=== PATIENT | female | born 2000 | race Two or more races ===

== ENCOUNTER 2023-09-16 07:09 | Inpatient (IN) | payer MEDICAID ==
[~2023-09-16 07:09] MED LIST: Bupivacaine 0.25% 10 ML SDV ONE
[2023-09-16] MEDS ORDERED: Nalbuphine 10 MG/ML Syringe IVPUSH PRN (07:40)
[2023-09-16] MEDS ORDERED: Sodium Chloride 0.9% 10 ML Syringe FLUSH PRN (07:40)
[2023-09-16] MEDS ORDERED: Ondansetron 4 MG/2 ML SDV IVPUSH PRN (07:40)
[2023-09-16] MEDS ORDERED: Lidocaine 1% 50 ML MDV INJECT PRN (07:40)
[2023-09-16] MEDS ORDERED: Oxytocin/Lactated Ringers 30 UNIT/500 ML BAG IV SCH (07:45)
[2023-09-16] MEDS: Misoprostol 25 MCG (1/4 of 100 MCG) Tab VAG SCH (08:20)
[2023-09-16 08:27] LABS: BASOPHILS ABSOLUTE AUTO 0.1 K/mm3 (0.0-0.2); BASOPHILS PERCENT AUTO 0.5 % (0.0-1.0); EOSINOPHILS ABSOLUTE AUTO 0.2 K/mm3 (0.0-0.4); EOSINOPHILS PERCENT AUTO 1.6 % (0.0-6.0); HEMATOCRIT 30.7 % (37.0-47.0); HEMOGLOBIN 10.6 gm/dl (12.0-16.0); IMMATURE GRAN ABSOLUTE AUTO 0.15 K/mm3 (0.00-0.05); IMMATURE GRAN PERCENT AUTO 1.4 % (0.0-0.4); LYMPHOCYTES ABSOLUTE AUTO 3.7 K/mm3 (1.0-4.8); MEAN CORPUSCULAR HEMOGLOBIN 31.4 pg (28.0-32.0); MEAN CORPUSCULAR HGB CONC 34.5 g/dl (32.0-36.0); MEAN CORPUSCULAR VOLUME 90.8 fl (83.0-99.0); MEAN PLATELET VOLUME 11.4 fl (9.4-12.3); MONOCYTES ABSOLUTE AUTO 1.1 K/mm3 (0.0-0.8); MONOCYTES PERCENT AUTO 10.1 % (0.0-8.0); NEUTROPHILS ABSOLUTE AUTO 5.7 K/mm3 (1.8-7.7); NEUTROPHILS PERCENT AUTO 52.4 % (41.0-71.0); NRBC ABSOLUTE 0.02 (0.00-0.02); NRBC PERCENT 0.2 % (0.0-0.2); PLATELET COUNT,PLT 203 K/mm3 (150-400); RED BLOOD CELL COUNT 3.38 M/mm3 (4.10-5.30); WHITE BLOOD CELL COUNT,WBC 10.96 K/mm3 (3.9-11.3)
[2023-09-16 08:49] LABS: ALANINE AMINOTRANSFERASE,ALT 14 U/L (14-59); ASPARTATE AMNIOTRANSFERASE,AST 13 U/L (15-37); BLOOD UREA NITROGEN,BUN 12 mg/dL (7-18); CREATININE 0.7 mg/dL (0.55-1.02); ESTIMATED GFR 125 mL/min (>60); LACTATE DEHYDROGENASE,LDH 167 U/L (81-234); URIC ACID 5.9 mg/dL (2.6-6.0)
[2023-09-16] MEDS ORDERED: diphenhydrAMINE 50 MG/ML SDV IVPUSH PRN (10:33)
[2023-09-16] MEDS ORDERED: ePHEDrine 50 MG/ML SDV IVPUSH PRN (10:33)
[2023-09-16 15:17] LABS: CREATININE,URINE RAND < 13.0 mg/dL (30.0-125.0); PROTEIN,URINE RANDOM < 6.0 mg/dL (0.0-11.8)
[2023-09-16] MEDS: Lactated Ringers 1,000 ML IV SCH (17:37)
[2023-09-16] MEDS: fentaNYL 100 MCG/2 ML SDV EPIDUR PRN (17:38)
[2023-09-16] MEDS: Bupivacaine/fentaNYL/NS 100 ML Bag EPIDUR PRN (17:38)
[2023-09-16] MEDS: Oxytocin/Lactated Ringers 30 UNIT/500 ML BAG IV SCH (20:21)
[2023-09-17] MEDS: Witch Hazel Medicated Pads 40/Jar TOP PRN (00:37)
[2023-09-17] MEDS: Ibuprofen 600 MG Tab PO SCH (00:37)
[2023-09-17] MEDS: Benzocaine/Menthol 20%-0.5% Spray 78 GM Cannister TOP PRN (00:38)
[2023-09-17 05:33] LABS: HEMATOCRIT 30.6 % (37.0-47.0); HEMOGLOBIN 10.3 gm/dl (12.0-16.0); MEAN CORPUSCULAR HEMOGLOBIN 30.6 pg (28.0-32.0); MEAN CORPUSCULAR HGB CONC 33.7 g/dl (32.0-36.0); MEAN CORPUSCULAR VOLUME 90.8 fl (83.0-99.0); MEAN PLATELET VOLUME 11.5 fl (9.4-12.3); PLATELET COUNT,PLT 183 K/mm3 (150-400); RED BLOOD CELL COUNT 3.37 M/mm3 (4.10-5.30); WHITE BLOOD CELL COUNT,WBC 15.14 K/mm3 (3.9-11.3)
[2023-09-17] MEDS: Sertraline 25 MG Tab PO SCH (09:17)
[2023-09-17] MEDS: Prenatal Multivitamin with Calcium/Folic Acid/Iron Tab PO SCH (09:18)
[2023-09-17] MEDS: Docusate Sodium 100 MG Cap PO PRN (09:25)
[2023-09-17] MEDS: Sodium Chloride 0.9% 10 ML Syringe FLUSH SCH (19:38)
[2023-09-17] MEDS: Acetaminophen 325 MG Tab PO PRN (21:29)
== END 2023-09-18 18:00 | disposition home or self-care (01) | DRG 807 ==
LOC: JD.OBCHECK 07:09 → JD.OB 07:15 → OBSVTOIN 22:12 → JD.OB 22:13
PROVIDERS: ADMIT Obstetrics & Gynecology; ATTEND Obstetrics & Gynecology
PROC: 10E0XZZ Delivery of Products of Conception, External Approach (ICD-10-PCS; principal; 2023-09-16)
PROC: 0HQ9XZZ Repair Perineum Skin, External Approach (ICD-10-PCS; 2023-09-16)
PROC: 3E0R3BZ Introduction of Anesthetic Agent into Spinal Canal, Percutaneous Approach (ICD-10-PCS; 2023-09-16)
PROC: 00HU33Z Insertion of Infusion Device into Spinal Canal, Percutaneous Approach (ICD-10-PCS; 2023-09-16)
PROC: 10H07YZ Insertion of Other Device into Products of Conception, Via Natural or Artificial Opening (ICD-10-PCS; 2023-09-16)
DX: O48.0 Post-term pregnancy (principal); Z37.0 Single live birth; Z3A.40 40 weeks gestation of pregnancy; O70.0 First degree perineal laceration during delivery; O16.5 Unspecified maternal hypertension, complicating the puerperium
CPT/HCPCS: 36415; 51702; 59025; 59409; 82565; 82570; 83615; 84156; 84450; 84460; 84520; 84550; 85025; 85027; 86592; 86850; 86900; 86901; A9270-GY; J0665; J3010; J3490; J7120; J7999